=== PATIENT | female | born 1965 | race Caucasian/White ===

== ENCOUNTER 2025-07-05 18:00 | Emergency (ER) | payer MEDICAID ==
[~2025-07-05] VITALS: Ht 167.6 cm; Wt 91.0 kg
[2025-07-05 18:05] VITALS: O2SAT 99
[2025-07-05 18:34] VITALS: BP 152/68; PULSE 69; RESP 16; TEMP 36.8; O2SAT 100
== END 2025-07-05 18:55 | disposition home or self-care (01) ==
LOC: ER 18:00
DX: T82.838A Hemorrhage due to vascular prosthetic devices, implants and grafts, initial encounter (principal); E78.00 Pure hypercholesterolemia, unspecified; I12.0 Hypertensive chronic kidney disease with stage 5 chronic kidney disease or end stage renal disease; N18.6 End stage renal disease; Z99.2 Dependence on renal dialysis; Y84.1 Kidney dialysis as the cause of abnormal reaction of the patient, or of later complication, without mention of misadventure at the time of the procedure
CPT/HCPCS: 99283